=== PATIENT | female | born 2000 | race Caucasian/White ===

== ENCOUNTER 2021-04-02 22:54 | Emergency (ER) | payer SELFPAY ==
[~2021-04-02] VITALS: Ht 167.7 cm; Wt 78.4 kg
--- NOTE | 2021-04-02 23:12 | ED General ---
General Chief Complaint: Abdominal/GI Problems Stated Complaint: STOMACH CRAMPS History of Present Illness Date Seen by Provider: April 02, 2021 Time Seen by Provider: 23:12 Initial Comments Patient presented to the emergency department for evaluation of abdominal pain that started several hours prior to arrival that she describes as a crampy pain in her mid low abdomen. She says that it is associated with her menstral cramping. She says that her menstrual cycle has been irregular. She has had nausea with several episodes of nonbloody nonbilious emesis. She denies dysuria hematuria fevers chills or prior abdominal surgeries. She is in no obvious distress with normal vital signs. Allergies and Home Medications Allergies Coded Allergies: No Known Allergies (Verified Allergy, Unknown, 04/02/21) Patient Home Medication List Home Medication List Reviewed: Yes Review of Systems Review of Systems Constitutional: no symptoms reported EENTM: no symptoms reported Respiratory: no symptoms reported Cardiovascular: no symptoms reported Gastrointestinal: abdominal pain, nausea, vomiting Genitourinary: no symptoms reported Musculoskeletal: back pain Skin: no symptoms reported Psychiatric/Neurological: No Symptoms Reported All Other Systems Reviewed Negative Unless Noted: Yes Physical Exam Vital Signs Vital Signs - First Documented 04/02/21 23:09 Temp 36.5 Pulse 104 Resp 15 B/P (MAP) 124/64 (84) O2 Delivery Room Air Capillary Refill : Height, Weight, BMI Height: '" Weight: lbs. oz. kg; BMI Method: General Appearance: No Apparent Distress, WD/WN HEENT: PERRL/EOMI Neck: Supple Respiratory: No Respiratory Distress Cardiovascular: Regular Rate, Rhythm Gastrointestinal: Soft, Tenderness (Bilateral lower quadrant tenderness palpation with no rebound or guarding) Back: Normal Inspection Extremity: Normal Capillary Refill Neurologic/Psychiatric: Alert, Oriented x3 Skin: Warm/Dry Progress/Results/Core Measures Suspected Sepsis SIRS Temperature: Pulse: Respiratory Rate: Laboratory Tests 04/02/21 23:15: White Blood Count 17.3H Blood Pressure / Mean: Laboratory Tests 04/02/21 23:15: Creatinine 0.65, Platelet Count 239, Total Bilirubin 0.7 Results/Orders Lab Results Laboratory Tests Test 04/02/21 23:00 04/02/21 23:15 Range/Units Urine Color DARK YELLOW Urine Clarity CLOUDY Urine pH 6.5 5-9 Urine Specific [place] 1.020 1.016-1.022 Urine Protein 1+ H NEGATIVE Urine Glucose (UA) NEGATIVE NEGATIVE Urine Ketones 1+ H NEGATIVE Urine Nitrite NEGATIVE NEGATIVE Urine Bilirubin NEGATIVE NEGATIVE Urine Urobilinogen 1.0 < = 1.0 MG/DL Urine Leukocyte Esterase 2+ H NEGATIVE Urine RBC (Auto) 3+ H NEGATIVE Urine RBC >100 H /HPF Urine WBC 10-25 H /HPF Urine Squamous Epithelial Cells 2-5 /HPF Urine Crystals NONE /LPF Urine Bacteria FEW H /HPF Urine Casts NONE /LPF Urine Mucus SMALL H /LPF Urine Culture Indicated YES White Blood Count 17.3 H 4.3-11.0 10^3/uL Red Blood Count 4.54 4.35-5.85 10^6/uL Hemoglobin 14.1 11.5-16.0 G/DL Hematocrit 42 35-52 % Mean Corpuscular Volume 92 80-99 FL Mean Corpuscular Hemoglobin 31 25-34 PG Mean Corpuscular Hemoglobin Concent 34 32-36 G/DL Red Cell Distribution Width 12.4 10.0-14.5 % Platelet Count 239 130-400 10^3/uL Mean Platelet Volume 11.4 H 7.4-10.4 FL Immature Granulocyte % (Auto) 0 % Neutrophils (%) (Auto) 82 H 42-75 % Lymphocytes (%) (Auto) 13 12-44 % Monocytes (%) (Auto) 4 0-12 % Eosinophils (%) (Auto) 0 0-10 % Basophils (%) (Auto) 0 0-10 % Neutrophils # (Auto) 14.3 H 1.8-7.8 X 10^3 Lymphocytes # (Auto) 2.2 1.0-4.0 X 10^3 Monocytes # (Auto) 0.7 0.0-1.0 X 10^3 Eosinophils # (Auto) 0.0 0.0-0.3 10^3/uL Basophils # (Auto) 0.0 0.0-0.1 10^3/uL Immature Granulocyte # (Auto) 0.1 0.0-0.1 10^3/uL Neutrophils % (Manual) 80 % Lymphocytes % (Manual) 15 % Monocytes % (Manual) 5 % Toxic Granulation 1+ Percent Immature Platelet Fraction 7.3 0.0-7.6 % Sodium Level 139 135-145 MMOL/L Potassium Level 3.9 3.6-5.0 MMOL/L Chloride Level 102 98-107 MMOL/L Carbon Dioxide Level 25 21-32 MMOL/L Anion Gap 12 5-14 MMOL/L Blood Urea Nitrogen 7 7-18 MG/DL Creatinine 0.65 0.60-1.30 MG/DL Estimat Glomerular Filtration Rate > 60 BUN/Creatinine Ratio 11 Glucose Level 122 H 70-105 MG/DL Calcium Level 8.8 8.5-10.1 MG/DL Corrected Calcium 8.5 8.5-10.1 MG/DL Magnesium Level 2.1 1.6-2.4 MG/DL Total Bilirubin 0.7 0.1-1.0 MG/DL Aspartate Amino Transf (AST/SGOT) 17 5-34 U/L Alanine Aminotransferase (ALT/SGPT) 11 0-55 U/L Alkaline Phosphatase 105 40-136 U/L Total Protein 7.1 6.4-8.2 GM/DL Albumin 4.4 3.2-4.5 GM/DL My Orders Orders - ABDIAS JAY DO Ua Culture If Indicated (04/02/21 23:03) Urine Bedside (04/02/21 23:03) Ct Abdomen/Pelvis W (04/02/21 23:15) Iv/Invasive Line Insertion .IV start (04/02/21:15) Cbc With Automated Diff (04/02/21:15) Comprehensive Metabolic Panel (04/02/21 23:15) Magnesium (04/02/21:15) Ondansetron Injection (Zofran Injectio (04/02/21 23:15) Ketorolac Injection (Toradol Injection) (04/02/21 23:15) Ns Iv 1000 Ml (Sodium Chloride 0.9%) (04/02/21 23:15) Urine Culture (04/02/21 23:00) Iohexol Injection (Omnipaque 350 Mg/Ml 1 (04/02/21:30) Received Contrast (Hold Metformin- Contr (04/02/21:30) Ns (Ivpb) (Sodium Chloride 0.9% Ivpb Bag (04/02/21:30) Manual Differential (04/02/21:15) Medications Given in ED Current Medications Medications Dose Ordered Sig/Bowen Route Start Time Stop Time Status Last Admin Dose Admin Iohexol 100 ml ONCE ONCE IV 04/02/21 23:30 04/02/21 23:31 DC 04/02/21 23:29 100 ML Ketorolac Tromethamine 15 mg ONCE ONCE IVP 04/02/21 23:15 04/02/21 23:17 DC 04/02/21 23:26 15 MG Ondansetron HCl 4 mg ONCE ONCE IVP 04/02/21 23:15 04/02/21 23:17 DC 04/02/21 23:26 4 MG Sodium Chloride 100 ml ONCE ONCE IV 04/02/21 23:30 04/02/21 23:31 DC 04/02/21 23:29 100 ML Vital Signs/I&O 04/02/21 23:09 Temp 36.5 Pulse 104 Resp 15 B/P (MAP) 124/64 (84) O2 Delivery Room Air Capillary Refill : Progress Note : Progress Note Patient with abdominal pain and leukocytosis on work-up. Her urinalysis is quite contaminated with menstrual bleeding and there is no definite signs of infection. No signs of acute surgical pathology on the CT. her pain has been controlled in the emergency department. There is no signs of ovarian torsion on the CT and I do not see any reason for transfer to another facility to get ultrasound as I have no ability to completely rule out torsion here in the emergency department. I told patient and mother limitations of work-up here in the emergency department and the need for further follow-up and testing especially if her symptoms persist. Patient told to take ibuprofen for pain and Zofran for nausea and vomiting drink plenty of fluids follow-up with primary care provider within 2 to 3 days and come back to the ED sooner with worsening pain fevers vomiting or other general concerns. Patient and mother aware and agreeable with plan and verbalized understanding of the above instructions. Departure Impression Primary Impression: Abdominal pain Qualified Codes: R10.30 - Lower abdominal pain, unspecified Additional Impression: Leukocytosis Disposition: 01 HOME, SELF-CARE Condition: Stable Departure-Patient Inst. Referrals: NO,LOCAL PHYSICIAN (PCP/Family) Primary Care Physician Patient Instructions: Severe Abdominal Pain, Adult (DC) Add. Discharge Instructions: Take 600mg of ibuprofen every 6 hours for pain. Follow with PCP within 2 days. All discharge instructions reviewed with patient and/or family. Voiced understanding. Scripts Ondansetron (Ondansetron Odt) 4 Mg Tab.rapdis 4 MG PO Q6H PRN for NAUSEA/VOMITING, #8 TAB 0 Refills Prov: ABDIAS JAY DO 04/03/21 ABDIAS JAY DO April 02, 2021 23:12
[2021-04-02] MEDS ORDERED: NS IV 1000 ML 1,000 ML IV SCH (23:15)
[2021-04-02] MEDS ORDERED: ONDANSETRON 4 MG/2 ML (SDV) Z0FRAN IVP ONE (23:15)
[2021-04-02] MEDS ORDERED: KETOROLAC 30 MG/ML VIAL IVP ONE (23:15)
[2021-04-02 23:16] LABS: BACTERIA,URINE FEW /HPF; BILIRUBIN,URINE NEGATIVE (NEGATIVE); CLARITY,URINE CLOUDY; COLOR,URINE DARK YELLOW; GLUCOSE, URINE (UA) NEGATIVE (NEGATIVE); KETONES,URINE 1+ (NEGATIVE); LEUKOCYTE ESTERASE ,URINE 2+ (NEGATIVE); NITRITE,URINE NEGATIVE (NEGATIVE); PH,URINE 6.5 (5-9); PROTEIN,URINE 1+ (NEGATIVE); RBC,URINE >100 /HPF
[2021-04-02] MEDS ORDERED: IOHEXOL 350 MG/ML 100 ML (OMNIPAQUE 350) VIAL IV ONE (23:30)
[2021-04-02] MEDS ORDERED: HOLD METFORMIN - RECEIVED CONTRAST 20 ML VIAL IV SCH (23:30)
[2021-04-02] MEDS ORDERED: NS 100 ML (IVPB) BAG IV ONE (23:30)
[2021-04-02 23:34] LABS: BASOPHILS % (AUTO) 0 % (0-10); EOSINOPHILS % (AUTO) 0 % (0-10); HEMATOCRIT 42 % (35-52); HEMOGLOBIN 14.1 G/DL (11.5-16.0); LYMPHOCYTES # (AUTO) 2.2 X 10^3 (1.0-4.0); LYMPHOCYTES % (AUTO) 13 % (12-44); MEAN CORPUSCULAR HEMOGLOBIN 31 PG (25-34); MEAN CORPUSCULAR HGB CONC 34 G/DL (32-36); MEAN CORPUSCULAR VOLUME 92 FL (80-99); MEAN PLATELET VOLUME 11.4 FL (7.4-10.4); MONOCYTES # (AUTO) 0.7 X 10^3 (0.0-1.0); MONOCYTES % (AUTO) 4 % (0-12); NEUTROPHILS # (AUTO) 14.3 X 10^3 (1.8-7.8); NEUTROPHILS % (AUTO) 82 % (42-75); PLATELET COUNT 239 10^3/uL (130-400); WHITE BLOOD COUNT 17.3 10^3/uL (4.3-11.0)
[2021-04-02 23:50] LABS: LYMPHOCYTES % (MANUAL) 15 %; MONOCYTES % (MANUAL) 5 %; NEUTROPHILS % (MANUAL) 80 %
[2021-04-02 23:51] LABS: TOXIC GRANULATION/VACUOLAZATIO 1+
[2021-04-02 23:53] LABS: ALKALINE PHOSPHATASE 105 U/L (40-136); BILIRUBIN,TOTAL 0.7 MG/DL (0.1-1.0); BUN/CREATININE RATIO 11; CALCIUM 8.8 MG/DL (8.5-10.1); CARBON DIOXIDE 25 MMOL/L (21-32); CHLORIDE 102 MMOL/L (98-107); CREATININE SERUM 0.65 MG/DL (0.60-1.30); GFR ESTIMATED > 60; GLUCOSE 122 MG/DL (70-105); MAGNESIUM 2.1 MG/DL (1.6-2.4); POTASSIUM 3.9 MMOL/L (3.6-5.0); SODIUM 139 MMOL/L (135-145)
[2021-04-02 23:54] LABS: ALANINE AMINOTRANSFERASE 11 U/L (0-55); ALBUMIN 4.4 GM/DL (3.2-4.5); TOTAL PROTEIN 7.1 GM/DL (6.4-8.2)
[2021-04-03] MEDS ORDERED: ONDA4TAB11 PO (00:05)
[2021-04-03 00:10] VITALS: BP 121/70
--- NOTE | 2021-04-03 07:08 | Diagnostic Imaging Report ---
PROCEDURE: CT abdomen and pelvis with contrast. TECHNIQUE: Multiple contiguous axial images were obtained through the abdomen and pelvis after administration of intravenous contrast. Auto Exposure Controls were utilized during the CT exam to meet ALARA standards for radiation dose reduction. All CT scans use one or more of the following dose optimizing techniques: automated exposure control, MA and/or KvP adjustment based on patient size and exam type or iterative reconstruction. INDICATION: Generalized abdominal pain COMPARISON: None. FINDINGS: The lung bases are clear. Gallbladder, solid organs, vascular structures and bowel are unremarkable. There is no free air or free fluid. The appendix is of normal appearance. Reproductive organs and urinary bladder are unremarkable. Osseous structures are age-appropriate. IMPRESSION: Negative CT abdomen and pelvis. Agree with preliminary report Dictated by: Dictated on workstation # [id number]
== END 2021-04-03 00:10 | disposition home or self-care (01) ==
LOC: ER FS 22:59
DX: R10.30 Lower abdominal pain, unspecified (principal); D72.829 Elevated white blood cell count, unspecified
CPT/HCPCS: 36415; 74177; 80053; 81000; 83735; 84703; 85007; 85027; 87088

== ENCOUNTER 2021-05-29 16:27 | Emergency (ER) | payer SELFPAY ==
[~2021-05-29] VITALS: Ht 170.2 cm; Wt 68.0 kg
[~2021-05-29 16:27] MED LIST: ONDA4TAB11 PO
--- NOTE | 2021-05-29 16:33 | ED Chest Pain ---
General Stated Complaint: CHEST PAIN History of Present Illness Date Seen by Provider: May 29, 2021 Time Seen by Provider: 16:33 Initial Comments 21-year-old female presents with chest pain starting just prior to arrival. She had onset of her monthly period with abdominal pain, cramping, nausea and vomiting for onset of the chest pain. Medical history significant for painful periods and she used to take control pills for the same, but is not on anything currently. Allergies and Home Medications Allergies Coded Allergies: No Known Allergies (Verified Allergy, Unknown, 04/02/21) Home Medications Ibuprofen 800 Mg Tablet, 800 MG PO Q8H PRN for CRAMPS Prescribed by: DEIRDRE ROJAS on 05/29/21 1657 Ondansetron 4 Mg Tab.rapdis, 4 MG PO Q6H PRN for NAUSEA/VOMITING Prescribed by: ABDIAS JAY on 04/03/21 0005 Patient Home Medication List Home Medication List Reviewed: Yes Review of Systems Review of Systems Constitutional: No chills, No dizziness, No fever; malaise; No weakness EENTM: No Symptoms Reported Respiratory: Denies Cough; Shortness of Air Cardiovascular: Chest Pain; Denies Edema; Lightheadedness, Palpitations Gastrointestinal: See HPI, Abdominal Pain (cramping); Denies Constipated, Denies Diarrhea; Nausea, Vomiting Genitourinary: Denies Frequency, Denies Flank Pain, Denies Hematuria; Pain (menses) Musculoskeletal: No back pain, No joint pain; muscle pain, muscle cramps Skin: No change in color, No rash Past Gpchija-Bbijhl-Bqkzlw Hx Seasonal Allergies Seasonal Allergies: No Past Medical History Surgeries: No Respiratory: No Cardiac: No Neurological: No Genitourinary: No Gastrointestinal: No Musculoskeletal: No Endocrine: No HEENT: No Cancer: No Psychosocial: No Integumentary: No Blood Disorders: No Physical Exam Vital Signs Vital Signs - First Documented 05/29/21 05/29/21 16:30 16:39 Temp 36.6 Pulse 69 Resp 16 B/P (MAP) 133/87 (102) Pulse Ox 100 O2 Delivery Room Air Capillary Refill : Height, Weight, BMI Height: '" Weight: lbs. oz. kg; 27.00 BMI Method: General Appearance: No Apparent Distress, WD/WN, Anxious HEENT: PERRL/EOMI, Normal ENT Inspection Neck: Full Range of Motion, Non Tender, Supple Respiratory: Chest Non Tender, Lungs Clear, Normal Breath Sounds, No Accessory Muscle Use, No Respiratory Distress Cardiovascular: Regular Rate, Rhythm, No Edema, No JVD, Normal Peripheral Pulses Gastrointestinal: Normal Bowel Sounds, Non Tender, Soft Extremity: Normal Capillary Refill, Normal Inspection, Non Tender Neurologic/Psychiatric: Alert, Oriented x3, No Motor/Sensory Deficits, Normal Mood/Affect Skin: Normal Color, Warm/Dry Progress/Results/Core Measures Results/Orders My Orders Orders - DEIRDRE ROJAS DO Chest 1 View Ap/Pa Only (05/29/21 16:33) Ekg Tracing (05/29/21 16:33) Ibuprofen Tablet (Motrin Tablet) (05/29/21 16:45) Ondansetron Oral Dissolve Tab (Zofran (05/29/21 16:45) Medications Given in ED Current Medications Medications Dose Ordered Sig/Bowen Route Start Time Stop Time Status Last Admin Dose Admin Ibuprofen 800 mg ONCE ONCE PO 05/29/21 16:45 05/29/21 16:46 DC 05/29/21 17:04 800 MG Vital Signs/I&O 05/29/21 05/29/21 16:30 16:39 Temp 36.6 Pulse 69 Resp 16 B/P (MAP) 133/87 (102) Pulse Ox 100 O2 Delivery Room Air Room Air Initial ECG Impression Date: May 29, 2021 Initial ECG Impression Time: 16:35 Initial ECG Rate: 67 Initial ECG Rhythm: Normal Sinus Initial ECG Intervals: Normal Initial ECG Impression: Normal Comment no ischemic change. no ectopy Diagnostic Imaging Diagonstic Imaging: Xray Plain Films/CT/US/NM/MRI: chest Comments Date of Exam:05/29/21 CHEST 1 VIEW AP/PA ONLY Indication: Chest pain Portable chest 4:36 PM Heart size and pulmonary vascularity are normal. Lungs are clear. There are no effusions or pneumothoraces. IMPRESSION: Negative chest Dictated by: Dictated on workstation # [id number] Dict: 05/29/211654 Trans: 05/29/211654 TCB [id number] Interpreted by: ALMA ADDISON MD Electronically signed by: ALMA ADDISON MD 05/29/211654 Departure Impression Primary Impression: Dysmenorrhea Additional Impressions: Chest pain Qualified Codes: R07.9 - Chest pain, unspecified Anxiety Disposition: 01 HOME, SELF-CARE Condition: Improved Departure-Patient Inst. Decision time for Depature: 16:56 Referrals: NO,LOCAL PHYSICIAN (PCP/Family) Primary Care Physician Patient Instructions: Menstrual Cramps (DC), Anxiety, Adult (DC) Add. Discharge Instructions: Follow up with your PCP in 1 week regarding "prevention" for your painful periods. Scripts Ibuprofen (Ibuprofen) 800 Mg Tablet 800 MG PO Q8H PRN for CRAMPS, #30 TAB 0 Refills Prov: DEIRDRE ROJAS DO 05/29/21 DEIRDRE ROJAS DO May 29, 2021 16:33
[2021-05-29 16:39] VITALS: BP 133/87
[2021-05-29] MEDS ORDERED: ONDANSETRON 4 MG (ZOFRAN) ORAL DISSOLVE TAB PO STA (16:45)
[2021-05-29] MEDS ORDERED: IBUPROFEN 800 MG (MOTRIN) TAB PO ONE (16:45)
--- NOTE | 2021-05-29 16:56 | Diagnostic Imaging Report ---
Indication: Chest pain Portable chest 4:36 PM Heart size and pulmonary vascularity are normal. Lungs are clear. There are no effusions or pneumothoraces. IMPRESSION: Negative chest Dictated by: Dictated on workstation # [id number]
[2021-05-29] MEDS ORDERED: IBUP-1780 PO (16:57)
== END 2021-05-29 17:20 | disposition home or self-care (01) ==
LOC: EDUNIT# 16:27 → ER FS 16:28
DX: N94.6 Dysmenorrhea, unspecified (principal); R07.9 Chest pain, unspecified; F41.9 Anxiety disorder, unspecified
CPT/HCPCS: 71045; 93005

== ENCOUNTER → 2021-08-30 | Outpatient (CLI) | payer SELFPAY ==
[~2021-08-30] MED LIST changes: +IBUP-1780 PO
== END ==
LOC: CARD 11:30
PROVIDERS: ATTEND Nurse Practitioner
DX: R06.02 Shortness of breath (principal); R07.89 Other chest pain; R01.1 Cardiac murmur, unspecified
CPT/HCPCS: 93306

== ENCOUNTER → 2023-02-09 | Outpatient (CLI) | payer SELFPAY ==
--- NOTE | 2023-02-09 20:01 | Diagnostic Imaging Report ---
EXAMINATION: Right wrist radiographs. EXAM DATE: 02/09/2023 7:17 PM. COMPARISON: None available. HISTORY: Right wrist pain. TECHNIQUE: 3 views. FINDINGS: There is no acute fracture, dislocation or destructive osseous process. The joint spaces are normal. The soft tissues are normal. IMPRESSION: No acute osseous abnormality. Dictated by: Dictated on workstation # [id number]
== END ==
LOC: RAD 18:49
DX: M25.531 Pain in right wrist (principal)
CPT/HCPCS: 73110